=== PATIENT | female | born 1945 | race Caucasian/White ===

== ENCOUNTER 2017-06-10 23:05 | Inpatient (IN) ==
[2017-06-11] MEDS ORDERED: ALUM/MAG/SIMETH/LIDO VISC 1:1 30 ML BOTTLE PO STA (01:03)
[2017-06-11] MEDS ORDERED: PANTOPRAZOLE 40 MG VIAL IV STA (01:03)
[2017-06-11] MEDS ORDERED: SODIUM CHLORIDE 0.9% 500 ML IV STA (01:03)
[2017-06-11] MEDS ORDERED: HYDROmorphone 2 MG/1 ML VIAL IV STA (01:03)
[2017-06-11] MEDS ORDERED: ONDANSETRON 4 MG/2 ML VIAL IV STA (01:03)
[2017-06-11 02:02] LABS: Basophils # 0.1 10*3/uL (0.0-0.2); Basophils % 0.6 % (0.0-0.8); Eosinophils # 0.2 10*3/uL (0.0-0.87); Hematocrit 45.2 VOL% (35.7-47.0); Hemoglobin 15.3 GM/DL (12.0-16.0); Immature Granulocytes % 0.4 %; Immature Granulocytes Absolute 0.07 #; Lymphocytes # 2.8 10*3/uL (1.4-4.0); Lymphocytes % 15.4 % (21.3-54.2); Mean Corpuscular HGB Conc 33.8 GM/DL (32-36); Mean Corpuscular Hemoglobin 31 PG (27-34); Mean Corpuscular Volume 90.2 FL (87-102); Mean Platelet Volume 10.6 FL (9.6-12.0); Monocytes # 1.5 10*3/uL (0.11-0.8); Monocytes % 8.1 % (1.7-12.7); Neutrophils # 13.7 10*3/uL (1.4-7.4); Neutrophils % 74.5 % (38.7-73.9); Platelet Count 470 T/CUMM (130-400); Red Blood Count 5.01 MC/CUMM (3.8-5.5); Red Cell Distribution Width 13.5 % (9.3-17.3); White Blood Count 18.3 T/CUMM (4-12)
[2017-06-11] MEDS ORDERED: ALUM/MAG/SIMETH/LIDO VISC 1:1 30 ML BOTTLE PO ONE (02:02)
[2017-06-11] MEDS ORDERED: ONDANSETRON 4 MG/2 ML VIAL ONE ×2 (02:02→14:24)
[2017-06-11] MEDS ORDERED: PANTOPRAZOLE 40 MG VIAL IV ONE ×2 (02:02→10:00)
[2017-06-11 02:34] LABS: Albumin 3.3 G/DL (3.4-5.0); Bilirubin,Total 0.4 MG/DL (0.2-1.0); Osmolality,Calculated 272.7 MOS/KG (273-304); Potassium 4.1 MMOL/L (3.5-5.1); Total Protein 7.4 G/DL (6.4-8.3)
[2017-06-11 02:38] LABS: Lactic Acid 1.3 MMOL/L (0.4-2.0)
[2017-06-11 02:43] LABS: Troponin I Only 0.082 NG/ML (0.00-0.045)
[2017-06-11 04:50] LABS: Apearance,Urine CLEAR (Clear); Bacteria,Urine Occasional /HPF (Few); Bilirubin,Urine Negative (Negative); Blood, Urine Small mg/dL (Negative); Glucose,Urine (UA) Negative (Negative); Ketones,Urine 5 mg/dL (Negative); Mucus,Urine Occasional /LPF (Occasional); Nitrite,Urine Negative (Negative); Protein,Urine Negative; RBC,Urine 2 /HPF (0-4); Squamous Epithelial Cell,Urine Occasional /HPF (0-10); Urine Color Straw (Yellow); Urine Specific Gravity 1.003 (1.001-1.035); Urine Urobilinogen < 2.0 EU/DL (0.2-1.0); WBC,Urine 8 /HPF (0-6)
[2017-06-11] MEDS ORDERED: ONDANSETRON 4 MG/2 ML VIAL IV PRN (07:00)
[2017-06-11] MEDS ORDERED: ACETAMINOPHEN 325 MG TABLET PO PRN (07:00)
[2017-06-11] MEDS ORDERED: HYDROmorphone 2 MG/1 ML VIAL IV PRN (07:00)
[2017-06-11] MEDS ORDERED: metroNIDAZOLE INJ 500 MG in PREMIX 1 EACH IV SCH (07:00)
[2017-06-11] MEDS ORDERED: metroNIDAZOLE 500 MG/100 ML PREMIX IV ONE (07:23)
[2017-06-11 08:53] LABS: Troponin I Only 0.113 NG/ML (0.00-0.045)
[2017-06-11] MEDS ORDERED: PANTOPRAZOLE 40 MG VIAL IV SCH (09:00)
[2017-06-11] MEDS ORDERED: PIPERACILLIN/TAZOBACTAM 3,375 MG VIAL IV ONE (10:00)
[2017-06-11] MEDS: LACTATED RINGERS 1,000 ML IV SCH ×2 (10:17→13:31)
[2017-06-11] MEDS: PIPERACILLIN/TAZOBACTAM 3,375 MG in SODIUM CHLORIDE 0.9% 100 ML IV SCH ×2 (10:18→18:30)
[2017-06-11] MEDS ORDERED: METOPROLOL TARTRATE 25 MG TABLET PO SCH (11:00)
[2017-06-11] MEDS ORDERED: BUPIVACAINE 0.25% 50 ML VIAL ONE (11:43)
[2017-06-11] MEDS ORDERED: TISSUE ADHESIVE 1 EACH APPLICATOR TOP ONE (11:43)
[2017-06-11] MEDS ORDERED: ALBUTEROL/IPRATROPIUM 3 ML NEB RESP TX ONE ×2 (14:16→14:20)
[2017-06-11] MEDS ORDERED: SEVOFLURANE 1 UNIT/15 MINUTE INH ONE (14:24)
[2017-06-11] MEDS ORDERED: PROPOFOL 200 MG/20 ML VIAL IV ONE (14:24)
[2017-06-11] MEDS ORDERED: ePHEDrine 50 MG/ML AMP ONE (14:24)
[2017-06-11] MEDS ORDERED: fentaNYL 100 MCG/2 ML VIAL ONE ×3 (14:24→14:28)
[2017-06-11] MEDS ORDERED: GLYCOPYRROLATE 0.4 MG/2 ML VIAL ONE (14:25)
[2017-06-11] MEDS ORDERED: NEOSTIGMINE 10 MG/10 ML VIAL ONE (14:25)
[2017-06-11] MEDS ORDERED: LACTATED RINGERS 1,000 ML IV ONE (14:25)
[2017-06-11] MEDS ORDERED: ROCURONIUM 100 MG/10 ML VIAL IV ONE (14:25)
[2017-06-11] MEDS ORDERED: ESMOLOL 100 MG/10 ML VIAL IV ONE (14:26)
[2017-06-11] MEDS ORDERED: ESMOLOL 100 MG/10 ML VIAL IV STA (14:28)
[2017-06-11] MEDS ORDERED: MIDAZOLAM 2 MG/2 ML VIAL ONE (14:29)
[2017-06-11] MEDS: ALBUTEROL/IPRATROPIUM 3 ML NEB RESP TX SCH ×2 (14:31→19:10)
[2017-06-11] MEDS ORDERED: METOPROLOL TARTRATE 5 MG/5 ML VIAL IV ONE ×2 (14:44→14:45)
[2017-06-11] MEDS ORDERED: DILTIAZEM 50 MG/10 ML VIAL IV ONE (15:00)
[2017-06-11] MEDS ORDERED: DILTIAZEM 100 MG VIAL.ADD IV ONE (15:02)
[2017-06-11] MEDS: DILTIAZEM INJ 100 MG in SODIUM CHLORIDE 0.9% 100 ML IV SCH (15:20)
[2017-06-11] MEDS: METOPROLOL TARTRATE 25 MG TABLET PO SCH ×2 (17:50→21:00)
[2017-06-11 18:06] LABS: Troponin I Only 0.106 NG/ML (0.00-0.045)
[2017-06-11] MEDS: NICOTINE 14 MG/24 HR PATCH TRANSDERM SCH (18:08)
[2017-06-12] MEDS: ALBUTEROL/IPRATROPIUM 3 ML NEB RESP TX SCH ×5 (00:13→23:58)
[2017-06-12 00:24] LABS: Troponin I Only 0.076 NG/ML (0.00-0.045)
[2017-06-12 06:10] LABS: Basophils # 0.1 10*3/uL (0.0-0.2); Basophils % 0.3 % (0.0-0.8); Eosinophils % 0.1 % (0.00-10.9); Hematocrit 39.6 VOL% (35.7-47.0); Hemoglobin 13.5 GM/DL (12.0-16.0); Immature Granulocytes % 0.4 %; Immature Granulocytes Absolute 0.07 #; Lymphocytes # 2.4 10*3/uL (1.4-4.0); Lymphocytes % 13.1 % (21.3-54.2); Mean Corpuscular HGB Conc 34.1 GM/DL (32-36); Mean Corpuscular Hemoglobin 31 PG (27-34); Mean Corpuscular Volume 90.8 FL (87-102); Monocytes # 1.9 10*3/uL (0.11-0.8); Monocytes % 10.3 % (1.7-12.7); Neutrophils # 14.1 10*3/uL (1.4-7.4); Neutrophils % 75.8 % (38.7-73.9); Platelet Count 386 T/CUMM (130-400); Red Blood Count 4.36 MC/CUMM (3.8-5.5); White Blood Count 18.5 T/CUMM (4-12)
[2017-06-12 06:32] LABS: Albumin 2.7 G/DL (3.4-5.0); Bilirubin,Total 1.1 MG/DL (0.2-1.0); Calcium 8.3 MG/DL (8.5-10.1); Osmolality,Calculated 272.7 MOS/KG (273-304); Total Protein 6.4 G/DL (6.4-8.3)
[2017-06-12] MEDS: METOPROLOL TARTRATE 25 MG TABLET PO SCH ×2 (07:06→09:42)
[2017-06-12] MEDS: PIPERACILLIN/TAZOBACTAM 3,375 MG in SODIUM CHLORIDE 0.9% 100 ML IV SCH ×5 (07:08→21:40)
[2017-06-12] MEDS: METOPROLOL TARTRATE 5 MG/5 ML VIAL IV SCH (07:09)
[2017-06-12] MEDS: NICOTINE 14 MG/24 HR PATCH TRANSDERM SCH (09:41)
[2017-06-12] MEDS: ASPIRIN EC 81 MG TABLET PO SCH (09:42)
[2017-06-12] MEDS: PANTOPRAZOLE 40 MG TABLET PO SCH (09:43)
[2017-06-12] MEDS ORDERED: METOPROLOL TARTRATE 25 MG TABLET PO ONE (11:39)
[2017-06-12 11:49] LABS: Hematocrit 42.6 VOL% (35.7-47.0); Hemoglobin 13.9 GM/DL (12.0-16.0)
[2017-06-12] MEDS: LEVOTHYROXINE 88 MCG TABLET PO SCH (12:06)
[2017-06-12] MEDS: DILTIAZEM INJ 100 MG in SODIUM CHLORIDE 0.9% 100 ML IV SCH (18:23)
[2017-06-12] MEDS: LACTATED RINGERS 1,000 ML IV SCH (20:19)
[2017-06-12] MEDS: METOPROLOL TARTRATE 50 MG TABLET PO SCH (20:46)
[2017-06-13 05:34] LABS: Basophils # 0.1 10*3/uL (0.0-0.2); Basophils % 0.4 % (0.0-0.8); Eosinophils # 0.2 10*3/uL (0.0-0.87); Eosinophils % 1.2 % (0.00-10.9); Hematocrit 39.2 VOL% (35.7-47.0); Hemoglobin 12.5 GM/DL (12.0-16.0); Immature Granulocytes % 0.5 %; Immature Granulocytes Absolute 0.07 #; Lymphocytes # 2.2 10*3/uL (1.4-4.0); Mean Corpuscular HGB Conc 31.9 GM/DL (32-36); Mean Corpuscular Hemoglobin 30 PG (27-34); Mean Corpuscular Volume 94.2 FL (87-102); Mean Platelet Volume 10.8 FL (9.6-12.0); Monocytes # 1.9 10*3/uL (0.11-0.8); Monocytes % 13.3 % (1.7-12.7); Neutrophils # 10.2 10*3/uL (1.4-7.4); Neutrophils % 69.6 % (38.7-73.9); Platelet Count 308 T/CUMM (130-400); Red Blood Count 4.16 MC/CUMM (3.8-5.5); White Blood Count 14.6 T/CUMM (4-12)
[2017-06-13 06:10] LABS: Albumin 2.3 G/DL (3.4-5.0); Bilirubin,Direct 0.17 MG/DL (0.0-0.20); Bilirubin,Indirect 0.6 MG/DL (0.0-1.0); Bilirubin,Total 0.8 MG/DL (0.2-1.0); Total Protein 5.7 G/DL (6.4-8.3)
[2017-06-13] MEDS: LEVOTHYROXINE 88 MCG TABLET PO SCH (06:18)
[2017-06-13] MEDS: PIPERACILLIN/TAZOBACTAM 3,375 MG in SODIUM CHLORIDE 0.9% 100 ML IV SCH (06:18)
[2017-06-13] MEDS: ALBUTEROL/IPRATROPIUM 3 ML NEB RESP TX SCH ×3 (07:00→19:53)
[2017-06-13] MEDS: NICOTINE 14 MG/24 HR PATCH TRANSDERM SCH (10:01)
[2017-06-13] MEDS: ASPIRIN EC 81 MG TABLET PO SCH (10:01)
[2017-06-13] MEDS: PANTOPRAZOLE 40 MG TABLET PO SCH (10:02)
[2017-06-13] MEDS: METOPROLOL TARTRATE 50 MG TABLET PO SCH (10:02)
[2017-06-13] MEDS: SOTALOL 80 MG TABLET PO SCH ×2 (11:13→23:00)
[2017-06-13 12:15] LABS: Hemoglobin 13.8 GM/DL (12.0-16.0)
[2017-06-13] MEDS ORDERED: NYSTATIN POWDER 15 GM BOTTLE TOP PRN (19:25)
[2017-06-14] MEDS: ALBUTEROL/IPRATROPIUM 3 ML NEB RESP TX SCH ×4 (01:08→20:00)
[2017-06-14 02:44] LABS: Basophils # 0.1 10*3/uL (0.0-0.2); Basophils % 0.5 % (0.0-0.8); Eosinophils # 0.6 10*3/uL (0.0-0.87); Eosinophils % 4.1 % (0.00-10.9); Hematocrit 38.3 VOL% (35.7-47.0); Hemoglobin 12.4 GM/DL (12.0-16.0); Immature Granulocytes % 0.3 %; Immature Granulocytes Absolute 0.05 #; Lymphocytes # 2.7 10*3/uL (1.4-4.0); Lymphocytes % 18.6 % (21.3-54.2); Mean Corpuscular HGB Conc 32.4 GM/DL (32-36); Mean Corpuscular Hemoglobin 31 PG (27-34); Mean Corpuscular Volume 94.8 FL (87-102); Mean Platelet Volume 11.8 FL (9.6-12.0); Monocytes # 1.8 10*3/uL (0.11-0.8); Monocytes % 11.9 % (1.7-12.7); Neutrophils # 9.5 10*3/uL (1.4-7.4); Neutrophils % 64.6 % (38.7-73.9); Platelet Count 307 T/CUMM (130-400); Red Blood Count 4.04 MC/CUMM (3.8-5.5); White Blood Count 14.8 T/CUMM (4-12)
[2017-06-14 04:10] LABS: Calcium 8.1 MG/DL (8.5-10.1); Osmolality,Calculated 275.4 MOS/KG (273-304)
[2017-06-14] MEDS: LEVOTHYROXINE 88 MCG TABLET PO SCH (06:30)
[2017-06-14] MEDS: ASPIRIN EC 81 MG TABLET PO SCH (09:40)
[2017-06-14] MEDS: SOTALOL 80 MG TABLET PO SCH ×2 (09:40→21:14)
[2017-06-14] MEDS: APIXABAN 5 MG TABLET PO SCH ×2 (09:40→21:12)
[2017-06-14] MEDS: NICOTINE 14 MG/24 HR PATCH TRANSDERM SCH (09:41)
[2017-06-14] MEDS: PANTOPRAZOLE 40 MG TABLET PO SCH (09:41)
[2017-06-15] MEDS: ALBUTEROL/IPRATROPIUM 3 ML NEB RESP TX SCH ×2 (01:40→06:56)
[2017-06-15 06:14] LABS: Basophils # 0.1 10*3/uL (0.0-0.2); Basophils % 0.5 % (0.0-0.8); Eosinophils # 0.5 10*3/uL (0.0-0.87); Eosinophils % 3.6 % (0.00-10.9); Hematocrit 37.6 VOL% (35.7-47.0); Hemoglobin 12.7 GM/DL (12.0-16.0); Immature Granulocytes % 0.6 %; Immature Granulocytes Absolute 0.08 #; Lymphocytes # 2.7 10*3/uL (1.4-4.0); Lymphocytes % 19.2 % (21.3-54.2); Mean Corpuscular HGB Conc 33.8 GM/DL (32-36); Mean Corpuscular Hemoglobin 31 PG (27-34); Mean Corpuscular Volume 91.3 FL (87-102); Mean Platelet Volume 11.9 FL (9.6-12.0); Monocytes # 1.5 10*3/uL (0.11-0.8); Monocytes % 10.7 % (1.7-12.7); Neutrophils # 9.2 10*3/uL (1.4-7.4); Neutrophils % 65.4 % (38.7-73.9); Platelet Count 361 T/CUMM (130-400); Red Blood Count 4.12 MC/CUMM (3.8-5.5); Red Cell Distribution Width 13.8 % (9.3-17.3); White Blood Count 14.1 T/CUMM (4-12)
[2017-06-15] MEDS: LEVOTHYROXINE 88 MCG TABLET PO SCH (06:28)
[2017-06-15 06:39] LABS: Calcium 8.1 MG/DL (8.5-10.1); Osmolality,Calculated 277.3 MOS/KG (273-304); Potassium 3.8 MMOL/L (3.5-5.1)
[2017-06-15 08:21] VITALS: BP 94/61
[2017-06-15] MEDS: SOTALOL 80 MG TABLET PO SCH (09:37)
[2017-06-15] MEDS: APIXABAN 5 MG TABLET PO SCH (09:37)
[2017-06-15] MEDS: ASPIRIN EC 81 MG TABLET PO SCH (09:38)
[2017-06-15] MEDS: PANTOPRAZOLE 40 MG TABLET PO SCH (09:38)
== END 2017-06-15 12:31 | disposition home or self-care (01) | DRG 418 ==
LOC: EDBD → N.ED 23:05 → N.EDINP 06-11 04:29 → N.TELEN 06-11 15:51
PROVIDERS: ADMIT Surgery; ATTEND Surgery
PROC: LAPCHOL (2017-06-11 17:35)